=== PATIENT | male | born 1985 | race Caucasian/White ===

== ENCOUNTER 2023-11-20 15:35 | Emergency (ER) | payer SELFPAY ==
[2023-11-20 15:44] VITALS: BP 159/109
[2023-11-20 16:16] LABS: % Basophils 1.3 % (0-2); % Eosinophils 0.1 % (0-6); % Immature Granulocytes 0.5 % (0-0.5); % Lymphocytes 25.9 % (20.5-51.1); % Monocytes 7.6 % (1.7-9.3); % Neutrophils 64.6 % (42.2-75.2); Absolute Basophils 0.1 10^3/uL (0-0.2); Absolute Monocytes 0.6 10^3/uL (0.1-0.6); Hematocrit 43.6 % (39.0-52.0); Hemoglobin 15.6 g/dL (13.0-18.0); Mean Corp Hgb Conc. 35.8 g/dL (33.0-37.0); Mean Corpuscular Hgb 30.5 pg (27.0-31.0); Mean Corpuscular Volume 85.3 fL (80.0-94.0); Nucleated Red Blood Cells % 0 % (-); Platelet Count 248 10^3/uL (130-400); Red Blood Cell Count 5.11 10^6/uL (4.70-6.10); Red Cell Dist. Width 12.1 % (11.5-14.5); White Blood Cell Count 7.7 10^3/uL (4.8-10.8)
[2023-11-20 16:33] LABS: ALT (SGPT) 11 U/L (0-50); AST (SGOT) 22 U/L (17-59); Albumin 4.7 g/dl (3.5-5.0); Alkaline Phosphatase 69 U/L (38-126); Blood Urea Nitrogen 12 mg/dl (9-20); Calcium 10.4 mg/dl (8.4-10.2); Carbon Dioxide 23 mmol/L (22-30); Chloride 105 mmol/L (98-107); Glucose 98 mg/dl (70-99); Sodium 139 mmol/L (135-145); Total Bilirubin 0.6 mg/dl (0.2-1.3); Total Protein 7.2 g/dl (6.3-8.2); eGFR > 60.00
[2023-11-20 16:40] LABS: Lipase 60 U/L (23-300)
[2023-11-20] MEDS: OMNIPAQUE 50 ML PO (17:15)
[2023-11-20 17:24] VITALS: BP 146/89
[2023-11-20 18:15] VITALS: BP 141/80
[2023-11-20 19:33] VITALS: BP 143/102
[2023-11-20 20:00] VITALS: BP 135/115
[2023-11-20 21:00] VITALS: BP 130/94
--- NOTE | 2023-11-20 21:03 | ED.GENMED ---
History of Present Illness
General
Chief Complaint: Abdominal Pain
Source: patient
Exam Limitations: none
Time Seen by Provider: 11/20/23 16:43
Nursing documentation reviewed up to this point in time: agreed with
Travel History
Have you had any contact with someone who has COVID-19?: No
Do you have any symptoms of coronavirus? Fever > 100 degrees, chills, cough, shortness of breath, sore throat, loss of taste or smell, muscle aches, or headache?: No
History of Present Illness
History of Present Illness:
Patient to ED with complaint of abdominal pain. [facility] He states US showed a mass in RUQ which they thought may be a hernia. He was then sent for evaluation by surgery who requested MRI. He has MRI
scheduled on . Tonight he felt the pain was worsening. Brought self to ED for eval. No n/v. Reports diarrhea x 10 days.
Past History
Past History
ED Past Medical History: Asthma, HTN and Other (PTSD, Endocarditis, Murmu)
Social History
Tobacco: Smoker
Alcohol: Occasional
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
Personal: Single
Living: with family
Employment: Employed
Review of Systems
Review of Systems
Allergies reviewed?: Yes
All Other Systems: ROS reviewed and negative except as documented in HPI and ROS
Constitutional: Reports no symptoms
EENT: Reports no symptoms
Respiratory: Reports no symptoms
Cardiac: Reports no symptoms
ABD/GI: Reports abdominal pain
: Reports no symptoms
Musculoskeletal: Reports no symptoms
Skin: Reports no symptoms
Neurological: Reports no symptoms
Psychiatric: Reports no symptoms
Phy Exam
General Physical Exam
General Presentation: well appearing and no apparent distress
General age: appears stated age
General Skin: warm and dry
General Habitus: normal
General Mental: alert
Pulmonary Exam
Pulmonary Exam: lungs clear
Gastrointestinal Exam
Gastrointestinal Exam: normal bowel sounds, soft, no organomegaly, no pulsatile mass, non distended and no cva tenderness
Palpation: left upper quadrant: No tenderness, left lower quadrant: No tenderness, right upper quadrant: Moderate tenderness and right lower quadrant: No tenderness
Musculoskeletal Exam
Musculoskeletal Exam: full ROM
Skin Exam
Skin Exam: normal color, warm/dry and no rash
Psychiatric Exam
Psychiatric Exam: normal mood/affect
Course
Orders/Labs/Results
Orders:
Orders
11/20/23 15:53
Complete Blood Count/With Diff Urgent
Comprehensive Metabolic Panel Urgent
Lipase Urgent
11/20/23 16:50
CT Abd/pel W Iv And Oral Contr Urgent
Comment:
Reason For Exam: abdominal pain, diarrheax 10 days
Iohexol [Omnipaque] See Protocol PO NOW STA
11/20/23 16:51
Stool Culture Urgent
MANOJ Source: Feces/Stool
Specimen Description:
Date Specimen was Collected: 11/20/23
Time Specimen was Collected: 16:58
Abnormal Lab Results
11/20/23
15:53
Calcium 10.4 H mg/dl
(8.4-10.2)
11/20/23 15:53
11/20/23 15:53
Vital Signs
Initial and Last Documented VS:
Initial Vital Signs
Temp Pulse Resp BP Pulse Ox
98.4 F 86 18 159/109 99
11/20/23 15:44 11/20/23 15:44 11/20/23 15:44 11/20/23 15:44 11/20/23 15:44
Last Documented Vital Signs
Temp Pulse Resp BP Pulse Ox
98.4 F 81 18 141/80 99
11/20/23 15:44 11/20/23 18:15 11/20/23 18:15 11/20/23 18:15 11/20/23 18:15
*Radiology
Radiology exam reviewed: radiology read reviewed
*Pulse Oximetry
Patient hypoxic: no
*Critical Care Note
Total Time (30-74mins, 75-104mins- exclusive of procedures): Not Applicable
Update Note
Update Note:
Ct and labs reveiwed with patient. No findings to explain his symptoms. He will be discharged home and will [facility]. Given instructions on s/s to return to ED. No diarrhea while in ED.
ED Attending Note
-
Portions of this chart may have been created with voice recognition software.� Occasional wrong word or��sound alike� substitutions may have occurred due to the inherent limitations of voice recognition software.
Discharge Plan
Departure
Patient Disposition: Home (Routine Discharge)
Date of Disposition: 11/20/23
Time of Disposition: 19:57
Patient with high blood pressure during this ER visit?: No
Condition: Good
Covid-19: Not Applicable
Discharge Problem:
Abdominal pain
Instructions: Abdominal Pain
Prescriptions:
No Action
doxycycline hyclate 100 MG capsule
100 mg PO BID Qty: 14 0RF
lorazepam 0.5 MG tablet
0.5 mg PO Q4HPRN PRN (Reason: anxiety) Qty: 2 0RF
Referrals:
NONE,* [Family Provider] -
Activity Restrictions/Additional Instructions:
Follow [facility] with [facility] as scheduled. Return to the emergency department immediately for any changes in/worsening of your symptoms.
Interventions
Interventions:
*Risk Screen - Suicide Last Done: 11/20/23 15:47
*General Assessment Last Done: 11/20/23 15:47
*Neglect/Abuse Screening Last Done: 11/20/23 15:47
ED- Fall Risk Assessment Last Done: 11/20/23 16:25
[facility] Assessment Last Done: 11/20/23 16:25
Discharge Date and Time
Print Language: PERUVIAN
== END 2023-11-20 21:28 | disposition home or self-care (01) ==
LOC: EMR 15:35
PROVIDERS: Emergency Medicine; EMERGENCY PHYSICIAN Emergency Medicine
DX: R10.9 Unspecified abdominal pain (principal); R19.7 Diarrhea, unspecified; I10 Essential (primary) hypertension; J45.909 Unspecified asthma, uncomplicated; R01.1 Cardiac murmur, unspecified; F43.10 Post-traumatic stress disorder, unspecified; F17.200 Nicotine dependence, unspecified, uncomplicated
CPT/HCPCS: 99285; 74177; 80053; 83690; 85025; Q9967

== ENCOUNTER 2024-04-28 13:25 | Emergency (ER) | payer OTHER, SELFPAY ==
[2024-04-28 13:36] VITALS: BP 151/102
--- NOTE | 2024-04-28 14:37 | ED.GENMED ---
History of Present Illness
General
Chief Complaint: Cough
Source: patient
Exam Limitations: none
Time Seen by Provider: 04/28/24 14:11
History of Present Illness
History of Present Illness:
38-year-old male otherwise healthy presents complaining of 3 weeks worth of worsening shortness of breath cough and wheeze. He also notes sinus congestion and green-yellow nasal discharge. No measurable fever. He states several people around him
had COVID recently. He states this started shortly after he was burning paper at work. He had a cough after this but this is progressed. No chills or sweats. No loss of taste or smell. No vomiting. No other complaints
Past History
Past History
ED Past Medical History: Asthma, HTN and Other (PTSD, Endocarditis, Mur[place])
Social History
Tobacco: Smoker
Alcohol: Occasional
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
Personal: Single
Living: with family
Employment: Employed
Phy Exam
Physical Exam
Physical Exam:
General: Well-appearing male no acute respiratory distress
HEENT: Normocephalic atraumatic heart: Regular rate and rhythm
Lungs: Inspiratory and expiratory wheeze diffusely
Extremities: No cyanosis
Skin: Warm no rash
Course
Orders/Labs/Results
Orders:
Orders
04/28/24 13:57
Chest [CR Chest - 2 Views ] Urgent
Comment:
Reason For Exam: cough
04/28/24 14:04
COVID-19 Antigen Urgent
Source: Nasal Swab
Influenza A+B Rapid Molecular Urgent
MANOJ Source: Nasal Swab
Specimen Description:
04/28/24 14:36
Ipratropium/Albuterol Sulfate [Duoneb] 3 ml INH R NOW ONE
Vital Signs
Initial and Last Documented VS:
Initial Vital Signs
Temp Pulse Resp BP Pulse Ox
98 F 91 18 151/102 97
04/28/24 13:36 04/28/24 13:36 04/28/24 13:36 04/28/24 13:36 04/28/24 13:36
Last Documented Vital Signs
Temp Pulse Resp BP Pulse Ox
98 F 91 18 151/102 97
04/28/24 13:36 04/28/24 13:36 04/28/24 13:36 04/28/24 13:36 04/28/24 13:36
MDM/Problems Addressed
Differential Diagnosis Includes:
Cough nasal congestion wheeze. Consider viral respiratory illness versus bronchitis versus pneumonia versus sinusitis. COVID and flu test pending. Chest x-ray ordered. DuoNeb ordered
*Critical Care Note
Total Time (30-74mins, 75-104mins- exclusive of procedures): Not Applicable
Update Note
Update Note:
Chest x-ray shows possible subtle pneumonia at the right base. Patient feeling much better after DuoNeb. No respiratory distress actually taking a nap when I reevaluated the patient. Will cover with steroids albuterol and an antibiotic. Stable
for discharge
ED Attending Note
-
Portions of this chart may have been created with voice recognition software.� Occasional wrong word or��sound alike� substitutions may have occurred due to the inherent limitations of voice recognition software.
Discharge Plan
Departure
Patient Disposition: Home (Routine Discharge)
Date of Disposition: 04/28/24
Time of Disposition: 16:04
Patient with high blood pressure during this ER visit?: No
Discharge Problem:
Acute bronchitis
Instructions: Pneumonia, Adult (DC)
Prescriptions:
New
albuterol sulfate 90 mcg/actuation HFA aerosol inhaler
2 puff inhalation Q6H PRN (Reason: shortness of breath or wheezing) Qty: 6.7 0RF
doxycycline hyclate 100 mg capsule
100 mg PO BID Qty: 14 0RF
prednisone 20 mg tablet
40 mg PO DAILY 5 Days Qty: 10 0RF
No Action
doxycycline hyclate 100 MG capsule
100 mg PO BID Qty: 14 0RF
lorazepam 0.5 MG tablet
0.5 mg PO Q4HPRN PRN (Reason: anxiety) Qty: 2 0RF
Referrals:
María Brock MD [Family Provider] -
Activity Restrictions/Additional Instructions:
Rest. Stay hydrated. Use albuterol inhaler as needed for shortness of breath or wheezing. Use steroid as directed and take antibiotics as directed. Return if worse otherwise follow-up with your doctor
Interventions
Interventions:
*Risk Screen - Suicide Last Done: 04/28/24 13:36
*General Assessment Last Done: 04/28/24 13:36
*Neglect/Abuse Screening Last Done: 04/28/24 13:36
*ED COVID-19 Vaccine History Last Done: 04/28/24 14:06
ED- Pulmonary Assessment Last Done: 04/28/24 14:09
Discharge Date and Time
Print Language: LAO
[2024-04-28 14:38] LABS: COVID-19 Antigen Negative (Negative)
[2024-04-28] MEDS: DUONEB 3 ML INH (14:57)
[2024-04-28 15:00] VITALS: BMI 33.2
[2024-04-28 16:07] VITALS: BP 156/95
== END 2024-04-28 16:14 | disposition home or self-care (01) ==
LOC: EMR 13:25
PROVIDERS: Physician Assistant; EMERGENCY PHYSICIAN Emergency Medicine; FAMILY PHYSICIAN Internal Medicine
DX: J20.9 Acute bronchitis, unspecified (principal); F17.200 Nicotine dependence, unspecified, uncomplicated; Z11.52 Encounter for screening for COVID-19
CPT/HCPCS: 99284; 94640; 71046; 87502; 87811

== ENCOUNTER 2025-06-08 11:25 | Emergency (ER) | payer OTHER, SELFPAY ==
[2025-06-08 11:30] VITALS: BP 130/88
--- NOTE | 2025-06-08 14:46 | ED.GENMED ---
History of Present Illness
General
Chief Complaint: Breathing Problem
Time Seen by Provider: 06/08/25 14:46
History of Present Illness
History of Present Illness:
FOCUSED PAST MEDICAL HISTORY
- Has had endocarditis, former IVDA
REVIEW OF OLD RECORDS
- The patient was seen in the emerged from 2023 diagnosed with acute bronchitis
Note:
CHIEF COMPLAINT(S)
Shortness of breath and chest and throat inflammation.
HISTORY OF PRESENT ILLNESS
The patient is a 29-year-old male with a history of endocarditis linked to intravenous drug use. He reports that he has abstained from IV drug use for approximately 15 years. The patient presents with symptoms that began on Monday, including
inflammation of the throat and chest, and difficulty breathing. He mentioned that his sister, who he recently communicated with via text, has been diagnosed with bronchitis. The patient feels he is experiencing a similar type of 'viral' illness,
characterized by pain on breathing and a wheezy feeling. A chest X-ray was performed, showing an abnormal density on the right side, suggestive of a small pleural effusion, but comparable to previous imaging. He denies having asthma. During the
examination, bilateral wheezing was noted despite X-ray findings that were relatively unchanged from prior studies. The patient describes a sensation fawn to a bronchitis-induced cough, noting slight relief.
PAST MEDICAL AND SURIGICAL HISTORY
History of endocarditis related to intravenous drug use.
CHRONIC MEDICAL CONDITIONS SIGNIFICANTLY AFFECTING CARE
- Former intravenous drug use with related endocarditis.
SOCIAL HISTORY
History of intravenous drug use, ceased approximately 15 years ago.
REVIEW OF SYSTEMS
- Respiratory: Shortness of breath, wheezing, and cough.
PHYSICAL EXAM
General: Alert, no acute distress.
Skin: Warm, dry.
Head: Normocephalic, atraumatic.
Neck: Supple, trachea midline.
Eye Ears, nose, mouth and throat: Oral mucosa moist.
Cardiovascular: Normal peripheral perfusion, No edema.
Respiratory: Bilateral wheezing noted.
Gastrointestinal: Abdomen nondistended.
Back: Normal range of motion, Normal alignment.
Musculoskeletal: Normal range of motion, normal strength.
Neurological: Alert and oriented to person, place, time, and situation, No focal neurological deficit observed.
Psychiatric: Cooperative, appropriate mood & affect.
PLAN
- Administer breathing treatments, specifically Duoneb.
- Initiate steroid therapy in pill form to help open airways.
- Conduct blood work (acknowledging the lack of concerning findings so far).
- Obtain a swab to rule out other infections.
- Consider antibiotics due to possible bacterial component on X-ray.
- Monitor and re-evaluate symptoms and treatment response.
DIFFERENTIAL DIAGNOSIS
The Differential Diagnosis includes, in no particular order and is not limited to:
1. Viral bronchitis
2. Bacterial bronchitis
3. Pneumonia
4. Asthma (though patient denies history)
5. Upper respiratory tract infection
6. Chronic obstructive pulmonary disease (COPD) exacerbation
7. Pleural effusion
8. Pulmonary embolism
9. Allergic reaction
10. Heart failure
Disposition:
SUMMARY OF ENCOUNTER
The patient, a 29-year-old male with a past history of endocarditis related to intravenous drug use, presented to the emergency department with shortness of breath, inflammation of the throat and chest, and difficulty breathing. He was found to be
positive for influenza. A chest x-ray was reviewed, which was consistent with previous studies, showing a questionable abnormality but no acute bacterial infection was suspected. Wheezing was noted upon auscultation, suggestive of bronchitis likely
secondary to the flu. A breathing treatment was administered, providing some relief.
ASSESSMENT
The patient is suspected to have bronchitis due to influenza.
EMERGENCY TREATMENTS ADMINISTERED
The patient received a steroid medication dose and breathing treatment in the form of Duoneb (ipratropium bromide and albuterol), which provided some relief.
PLAN
- Prescribe steroid medication for continued airway management.
- Provide a prescription for an albuterol inhaler to help with wheezing.
- Prescribe oseltamivir (Tamiflu) for influenza management.
- Monitor symptoms and recovery progress.
INDEPENDENT REVIEW OF LABS AND INTERPRETATION OF TESTS
- My independent interpretation of the chest x-ray is consistent with previous imaging, showing a questionable abnormality, but does not indicate an acute bacterial infection.
PATIENT EDUCATION AND COUNSELING
The patient was informed that bronchitis is likely due to influenza. Education was provided about managing symptoms with prescribed medications, including the importance of using steroid and albuterol inhalers to help open airways. The patient was
advised to expect gradual improvement over the next few days.
FOLLOW-UP INSTRUCTIONS
The patient was instructed to follow up with primary care or return to the emergency department if symptoms worsen or do not improve.
MEDICATION RECONCILIATION
- Prescribed steroid medication (name unspecified).
- Prescribed albuterol inhaler.
- Prescribed oseltamivir (Tamiflu).
MEDICAL DECISION MAKING
1. Number and Complexity of Problems Addressed: Chronic conditions affecting care: history of endocarditis related to intravenous drug use. Differential diagnosis includes: viral bronchitis, bacterial bronchitis, pneumonia, asthma, upper respiratory
tract infection, COPD exacerbation, pleural effusion, pulmonary embolism, allergic reaction, heart failure.
2. Data:
- Category 1:
- The chest x-ray was independently reviewed.
3. Risk:
- Prescription medication was prescribed: steroid medication, albuterol inhaler, oseltamivir.
DIAGNOSIS
- J20.9 Acute bronchitis, unspecified
- J09.X2 Influenza due to identified novel influenza A virus with other respiratory manifestations
RADIOLOGY
- Chest x-ray suggests loculated pleural effusion on the right however this has been seen in the past
LABS
- White count is 4.7, chemistries unremarkable, COVID-negative, influenza positive
UPDATE
- Patient was wheezing on exam and feels much improved after nebs given
- Also added steroids
- Chest x-ray does not appear to be particularly worse compared to prior
- Favor diagnosis of bronchitis due to influenza
- Much improved in ED
- He is [facility] who requested meds filled here however I do not feel that this is possible as I also checked with another provider
- I sent prescriptions electronically to [facility] in [place]
Past History
Past History
ED Past Medical History: Asthma, HTN and Other (PTSD, Endocarditis, [place])
Social History
Tobacco: Smoker
Alcohol: Occasional
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
Personal: Single
Living: with family
Employment: Employed
Phy Exam
Physical Exam
Physical Exam:
See HPI
Course
Orders/Labs/Results
Orders:
Orders
06/08/25 11:26
Chest [CR Chest - 2 Views ] Urgent
Comment:
Reason For Exam: cough
06/08/25 15:07
Ipratropium/Albuterol Sulfate [Duoneb] 3 ml INH R NOW STA
Prednisone [Deltasone] 50 mg PO NOW STA
06/08/25 15:24
CBC/With Diff [Complete Blood Count/With Diff] Urgent
CMP [Comprehensive Metabolic Panel] Urgent
COVID-19 Antigen Urgent
Source: Nasal Swab
Influenza A+B Rapid Molecular Urgent
MANOJ Source: Nasal Swab
Specimen Description:
06/08/25 15:41
Acetaminophen [Tylenol] 1,000 mg .ROUTE .STK-MED ONE
Acetaminophen [Tylenol] 1,000 mg PO NOW STA
Abnormal Lab Results
06/08/25
15:24
WBC 4.7 L 10^3/uL
(4.8-10.8)
Absolute Lymphs (auto) 1.0 L 10^3/uL
(1.2-3.4)
Absolute Monos (auto) 0.8 H 10^3/uL
(0.1-0.6)
Monocytes % 16.0 H %
(1.7-9.3)
BUN 6 L mg/dl
(9-20)
Glucose 100 H mg/dl
(70-99)
06/08/25 15:24
06/08/25 15:24
Vital Signs
Initial and Last Documented VS:
Initial Vital Signs
Temp Pulse Resp BP Pulse Ox
37.7 C 97 20 130/88 95
06/08/25 11:30 06/08/25 11:30 06/08/25 11:30 06/08/25 11:30 06/08/25 11:30
Last Documented Vital Signs
Temp Pulse Resp BP Pulse Ox
37.7 C 98 20 137/81 100
06/08/25 15:36 06/08/25 15:36 06/08/25 15:36 06/08/25 15:36 06/08/25 15:59
*Pulse Oximetry
SaO2: 95
Oxygen Mode of Delivery: Room air
Patient hypoxic: no
*Critical Care Note
Total Time (30-74mins, 75-104mins- exclusive of procedures): Not Applicable
ED Attending Note
-
Portions of this chart may have been created with voice recognition software.� Occasional wrong word or��sound alike� substitutions may have occurred due to the inherent limitations of voice recognition software.
Discharge Plan
Departure
Patient Disposition: Home (Routine Discharge)
Date of Disposition: 06/08/25
Time of Disposition: 16:23
Patient with high blood pressure during this ER visit?: Yes
Discharge Problem:
Acute bronchitis
Instructions: Bronchitis in adults - ED (DC), BLOOD PRESSURE
Prescriptions:
New
albuterol sulfate [Ventolin HFA] 90 mcg/actuation HFA aerosol inhaler
2 puff inhalation Q6H PRN (Reason: shortness of breath or wheezing) Qty: 8.5 0RF
oseltamivir [Tamiflu] 75 mg capsule
75 mg PO BID Qty: 10 0RF
prednisone 50 mg tablet
50 mg PO DAILY Qty: 4 0RF
No Action
doxycycline hyclate 100 MG capsule
100 mg PO BID Qty: 14 0RF
lorazepam 0.5 MG tablet
0.5 mg PO Q4HPRN PRN (Reason: anxiety) Qty: 2 0RF
albuterol sulfate 90 mcg/actuation HFA aerosol inhaler
2 puff inhalation Q6H PRN (Reason: shortness of breath or wheezing) Qty: 6.7 0RF
doxycycline hyclate 100 mg capsule
100 mg PO BID Qty: 14 0RF
prednisone 20 mg tablet
40 mg PO DAILY 5 Days Qty: 10 0RF
Referrals:
María Brock MD [Family Provider, Internal Medicine]
Activity Restrictions/Additional Instructions:
Your wheezing and I feel you have bronchitis. This is most likely a viral illness. The chest x-ray does show a small area that looks like a loculated pleural effusion on the right side however this has been seen in the past and does not appear
particularly worse today. Your cause of bronchitis is likely due to the flu. You did test positive for the flu. This generally will get better on its own however I also prescribed Tamiflu and also sent prescriptions for albuterol and prednisone
to your pharmacy in [place].
Interventions
Interventions:
*General Assessment Last Done: 06/08/25 15:59
*Neglect/Abuse Screening Last Done: 06/08/25 15:59
*ED COVID-19 Vaccine History Last Done: 06/08/25 11:30
*ED Influenza Vaccine History Last Done: 06/08/25 11:30
*Risk Screen - Suicide (C-SSRS) Last Done: 06/08/25 11:30
ED- Cardiac Assessment Last Done: 06/08/25 15:59
ED- Pulmonary Assessment Last Done: 06/08/25 15:59
Discharge Date and Time
Print Language: SLOVAK
[2025-06-08] MEDS: DELTASONE 50 MG PO (15:19)
[2025-06-08] MEDS: DUONEB 3 ML INH (15:19)
[2025-06-08 15:36] VITALS: BP 137/81
[2025-06-08 15:39] LABS: Hematocrit 41.9 % (39.0-52.0); Hemoglobin 14.5 g/dL (13.0-18.0); Mean Corp Hgb Conc. 34.6 g/dL (33.0-37.0); Mean Corpuscular Volume 88.2 fL (80.0-94.0); Nucleated Red Blood Cells % 0 % (-); Platelet Count 166 10^3/uL (130-400); Red Cell Dist. Width 12.1 % (11.5-14.5)
[2025-06-08] MEDS: TYLENOL 1000 MG PO (15:42)
[2025-06-08 15:54] LABS: COVID-19 Antigen Negative (Negative)
[2025-06-08 15:58] LABS: ALT (SGPT) 11 U/L (0-50); AST (SGOT) 25 U/L (17-59); Albumin 4.5 g/dl (3.5-5.0); Alkaline Phosphatase 52 U/L (38-126); Blood Urea Nitrogen 6 mg/dl (9-20); Calcium 9.0 mg/dl (8.4-10.2); Carbon Dioxide 27 mmol/L (22-30); Chloride 104 mmol/L (98-107); Glucose 100 mg/dl (70-99); Potassium 4.4 mmol/L (3.5-5.1); Sodium 136 mmol/L (135-145); Total Protein 6.9 g/dl (6.3-8.2); eGFR > 60.00
== END 2025-06-08 16:58 | disposition home or self-care (01) ==
LOC: EMR 11:25
PROVIDERS: Emergency Medicine; EMERGENCY PHYSICIAN Emergency Medicine; FAMILY PHYSICIAN Internal Medicine
DX: J09.X2 Influenza due to identified novel influenza A virus with other respiratory manifestations (principal); J20.9 Acute bronchitis, unspecified; I10 Essential (primary) hypertension; J45.909 Unspecified asthma, uncomplicated; F43.10 Post-traumatic stress disorder, unspecified; F17.200 Nicotine dependence, unspecified, uncomplicated; Z86.79 Personal history of other diseases of the circulatory system
CPT/HCPCS: 99284; 94640; 71046; 80053; 85025; 87502; 87811